=== PATIENT | female | born 1980 | race Caucasian/White ===

== ENCOUNTER 2016-09-04 19:26 | Emergency (ER) | payer BC ==
[~2016-09-04] VITALS: Ht 162.6 cm; Wt 89.1 kg
[2016-09-04 19:30] VITALS: Ht 162.6 cm; Wt 89.1 kg
[2016-09-04] MEDS ORDERED: IBUP-1724 PO (19:42)
[2016-09-04] MEDS ORDERED: ACET-62 PO (19:42)
[2016-09-04] MEDS ORDERED: DESO1TAB4 PO (19:42)
[2016-09-04] MEDS ORDERED: CETI-269 PO (19:42)
[2016-09-04] MEDS ORDERED: BUPR150T3 PO (19:42)
[2016-09-04] MEDS ORDERED: FLUT9.9S EA NOSTRIL (19:42)
--- NOTE | 2016-09-04 19:44 | ERPDOC ---
Departure Disposition Decision Date: September 04, 2016 Disposition Decision Time: 21:02 Disposition: 01 DISCHARGED HOME, SELF-CARE Impression Impression Impression: Primary Impression: Headache Condition: Stable Seen By: Mid-level only Referrals: LAVELL COLE MD (Family) Patient Instructions: Acute Headache (ED) Problems/Meds/Labs Reviewed?: Yes Medications reviewed and manag: Yes Additional Instructions: 1. Go home and rest. 2. Follow up with your doctor. Follow up care ordered?: Yes Mental Status: Alert, Oriented HPI - Headache General Chief Complaint: Headache Stated Complaint: HEADACHE Time Seen by Provider: 19:43 Source: patient Exam Limitations: no limitations HPI - Headache Initial Comments Jennifer is a 35 -year-old female who comes to the emergency department with chief complaint of headache onset last night. Hx chronic headaches, feels secondary to allergies often times or dehydration. Over the last year has increased water intake and has not had any major headaches. Feels this headache today is different than her chronic headaches she used to experience. Headache sporadic and sharp to left side of head. Took [place] 10 mg for headache and that helped some, she was able to sleep a few hours. Denies having nausea/vomiting. Denies fevers. Denies neck pain. Denies sinus symptoms although does feel allergies are flaring up a little recently. Denies recent head trauma. Denies photophobia. Denies phonophobia. Has been having some irregular menses with a month long period starting around 07/11 and lasting for one month, was started on oral contraceptives to make menses more regular, despite prior BTL. Occurred At: home Onset: Getting worse Duration: 12-24 hrs Pain Scale: Now: 9/10 Severity/Quality: severe Location: temporal Prior Headaches/Recent Trauma: no recent headache/trauma, chronic headaches Associated Symptoms: nasal drainage Allergies: Coded Allergies: erythromycin base (Verified Allergy, Mild, UPSET STOMACHE, 09/04/16) Past History Past Medical History Neurological: headaches Surgical History Reproductive/: tubal ligation Social History Smoking Status: Former smoker Substance Use Type: does not use Alcohol Intake: none Marital Status: Household Members: family Current Occupational Status: employed Current Occupation: DON drug tx Review of Systems Constitutional Constitutional: DENIES: fever ENMT Sinuses: rhinorrhea Mouth/Throat: DENIES: sore throat Cardiovascular Cardiac: DENIES: chest pain Pulmonary Respiratory: DENIES: cough GI Upper Abdomen: DENIES: nausea, vomiting Lower Abdomen: DENIES: diarrhea Female: LMP (07/11-08/11) Musculoskeletal General: DENIES: pain Integumentary Skin: DENIES: rash Neurological General: headache Psychiatric Psychiatric: depression All other Systems All Other Systems: Reviewed and Negative Physical Exam General General Nourishment: well nourished, well developed, appears stated age, no acute distress Vitals and Pain First Documented Vital Signs Date Time Temp Pulse Resp B/P Pulse Ox O2 Delivery O2 Flow Rate FiO2 09/04/16 19:30 98.0 78 14 136/81 100 Room Air Weight: Kilograms: Height (feet): Height (inches): Triage Pain Scale: Eyes (brief) Eyes Brief: found: EOMI, PERRL, not found: scleral icterus ENMT (brief) ENMT Brief: FOUND: TM clear, TM good light reflex, ear canals clear, mucosa moist, normal dentition, NOT FOUND: nasal exudate, nasal swelling, pharnyx erythema Neck (brief) Neck: NOT FOUND: thyromegaly Respiratory (brief) Respiratory: FOUND: clear all wallace, equal bilaterally Cardiovascular (brief) Cardiac: FOUND: regular rate, regular rhythm Abdomen (brief) Abdominal Brief: FOUND: bowel normo active x4, soft, NOT FOUND: tender Lymphatic (brief) Lymphatic Brief: NOT FOUND: adenopathy, lymphedema Integumentary (brief) Integumentary Brief: FOUND: dry, pink, warm Neurologic (brief) Neurological Brief: FOUND: CN w/o gross def to obs, motor-no gross deficits, sensory-no gross deficits Psychiatric (brief) Psychiatric Brief: FOUND: alert, attentive, normal affect, oriented Differential Diagnoses Considering: Headache, Headache - Migraine, Headache - Tension/Muscle, Tumor Progress Results/Orders Orders Procedure Category Date Status Time Normal Saline (Normal PHA 09/04/16 Complete Saline Iv) 20:00 Ketorolac (Toradol) PHA 09/04/16 Complete 20:00 Metoclopramide PHA 09/04/16 Complete (Reglan Inj) 20:00 Ct Head W/O Contrast CT 09/04/16 Taken 19:51 Medications Current ED Medications Sodium Chloride (Normal Saline IV) 1,000 ml @ 999 mls/hr Q1H1M ONCE IV Last administered on 09/04/16t 19:58; Start 09/04/16 at 20:00; Stop 09/04/16 at 21:00 ; Status DC Ketorolac Tromethamine (Toradol) 30 mg O ONCE IV Last administered on 20:02; Start 09/04/16 at 20:00; Stop 09/04/16 at 20:01; Status DC Metoclopramide HCl (REGLAN Inj) 10 mg O ONCE IV Last administered on 20:03; Start 09/04/16 at 20:00; Stop 09/04/16 at 20:01; Status DC Progress Progress 2100 - Pain down to 3/10. Much better. Patient feels able to go home and sleep. CT CT : CT: Head no contrast Interpretation: Normal, Faxed Report BNE ABEBE APRN September 04, 2016 19:43
--- NOTE | 2016-09-04 19:46 | NUR ---
PROVIDER BRAD LIND IN ROOM TO SEE PT
[2016-09-04] MEDS ORDERED: METOCLOPRAMIDE 10mg/2ml INJECTION IV ONE (20:00)
[2016-09-04] MEDS ORDERED: NORMAL SALINE 1,000 ML IV ONE (20:00)
[2016-09-04] MEDS ORDERED: KETOROLAC 30mg/ml INJECTION IV ONE (20:00)
--- NOTE | 2016-09-04 20:03 | NUR ---
TO XRAY VIA CART
--- NOTE | 2016-09-04 20:13 | NUR ---
RETURN FROM CT
[2016-09-04 21:05] VITALS: BP 119/62; PULSE 76; RESP 16; TEMP 98.2; O2SAT 99
--- NOTE | 2016-09-04 21:05 | NUR ---
DEPART PT IS GIVEN DISMISSAL INSTRUCTIONS WITH VERBAL UNDERSTANDING. PT LEAVES AMBULATORY TO ED EXIT. HEADACHE PAIN RATE D3/10
--- NOTE | 2016-09-05 08:13 | DI ---
Indication: ITS.REASON: headache PROCEDURE: CT HEAD W/O CONTRAST: Encounter: Initial Comparison: None Technique: Axial CT images through the head were performed without contrast. Iterative Reconstruction dose reducing technique was utilized. FINDINGS: The ventricles are of normal size, shape, and configuration for the patient's age. There is no evidence of acute intracranial hemorrhage, midline displacement, or mass effect. The CT attenuation of the brain parenchyma is normal within the cerebellum, brain stem, and cerebral hemispheres. The tympanic cavities and mastoid air cells are free of appreciable disease. There are no definite fractures of the skull base, calvarium, or visualized portion of the midface. IMPRESSION: No CT evidence of acute intracranial abnormality. There is a preliminary report by [employer]. .
== END 2016-09-04 21:05 | disposition home or self-care (01) ==
LOC: ED 19:26
DX: R51 Headache (principal); J34.89 Other specified disorders of nose and nasal sinuses
CPT/HCPCS: 70450; 96361; 96374; 96375; 99284; J1885; J2765; J7030